=== PATIENT | female | born 1930 | race Two or more races ===

== ENCOUNTER 2020-09-09 11:32 | Emergency (ER) | payer MEDICARE, OTHER ==
[~2020-09-09] VITALS: Ht 157.5 cm; Wt 49.9 kg
[~2020-09-09 11:32] MED LIST: Gabapentin PO; SULF1TAB47 PO
[2020-09-09 12:14] LABS: BASOPHILS # (AUTO) 0.1 K/uL (0.0-8.0); BASOPHILS % (AUTO) 0.7 % (0.0-2.0); EOSINOPHILS % (AUTO) 8.7 % (0.0-7.0); HEMOGLOBIN 14.3 g/dL (10.9-14.3); LYMPHOCYTES # (AUTO) 4.1 K/uL (20.0-40.0); LYMPHOCYTES % (AUTO) 35.4 % (20.5-51.5); MEAN CORPUSCULAR HEMOGLOBIN 29.9 uug (24.7-32.8); MEAN CORPUSCULAR HGB CONC 33 g/dL (32.3-35.6); MEAN CORPUSCULAR VOLUME 90.2 fL (75.5-95.3); MONOCYTES # (AUTO) 0.6 K/uL (2.0-10.0); MONOCYTES % (AUTO) 4.8 % (0.0-11.0); NEUTROPHILS # (AUTO) 5.9 K/uL (1.8-8.9); NEUTROPHILS % (AUTO) 50.4 % (38.5-71.5); PLATELET COUNT (AUTO) 336 K/uL (179-408); RED BLOOD CELL COUNT(AUTO) 4.77 MIL/uL (3.63-4.92); WHITE BLOOD COUNT (AUTO) 11.7 K/uL (3.8-11.8)
[2020-09-09 12:20] LABS: POTASSIUM 4.4 mmol/L (3.5-5.1)
[2020-09-09 12:26] LABS: BILIRUBIN,DIRECT 0.1 mg/dL (0.0-0.2); BILIRUBIN,TOTAL 0.5 mg/dL (0.2-1.0); TOTAL PROTEIN, SERUM 7.5 g/dL (6.4-8.2)
[2020-09-09 12:37] LABS: *BILIRUBIN,URIN NEGATIVE (NEGATIVE); *BLOOD, URINE NEGATIVE (NEGATIVE); *CLARITY,URINE SLIGHTLY CLOUDY (CLEAR); *COLOR,URINE YELLOW (YELLOW); *KETONES,URINE NEGATIVE (NEGATIVE); *UROBILINOGEN,URINE 0.2 E.U./dl (NORMAL); LEUKOCYTE ESTERASE ,URINE NEGATIVE (NEGATIVE); NITRITE, URINE NEGATIVE (NEGATIVE); PH,URINE 5.5 (5.0-8.0); UGLUCOSE NEGATIVE (NEGATIVE)
[2020-09-09] MEDS ORDERED: BISA10SU61 RC (13:24)
[2020-09-09] MEDS ORDERED: DOCU-141 PO (13:24)
[2020-09-09 13:52] VITALS: BP 128/74
[2020-09-09 15:25] LABS: RBC,URINE 0-3 /HPF (0-3); WBC,URINE 0-3 /HPF (0-3)
[2020-09-09 15:26] LABS: BACTERIA,URINE NONE SEEN /HPF (NONE SEEN); SQUAMOUS EPITHELIAL CELL,UR NONE SEEN /HPF (NONE SEEN); URINE AMORPHOUS URATE FEW /HPF
== END 2020-09-09 13:48 | disposition home or self-care (01) ==
LOC: ER 11:33
DX: K59.00 Constipation, unspecified (principal); R63.4 Abnormal weight loss; Z86.73 Personal history of transient ischemic attack (TIA), and cerebral infarction without residual deficits; Z87.440 Personal history of urinary (tract) infections; E11.42 Type 2 diabetes mellitus with diabetic polyneuropathy; K21.9 Gastro-esophageal reflux disease without esophagitis; E79.0 Hyperuricemia without signs of inflammatory arthritis and tophaceous disease; R53.1 Weakness; Z79.899 Other long term (current) drug therapy; R79.89 Other specified abnormal findings of blood chemistry; I44.0 Atrioventricular block, first degree
CPT/HCPCS: 36415; 71045; 83690; 85025; 87086; 93005; A4663

== ENCOUNTER 2020-10-18 18:08 | Inpatient (IN) | payer MEDICARE, OTHER ==
[~2020-10-18] VITALS: Ht 152.4 cm; Wt 48.1 kg
[~2020-10-18 18:08] MED LIST changes: +BISA10SU61 RC; +DOCU-141 PO
[2020-10-18] MEDS ORDERED: METF-442 PO (18:28)
--- NOTE | 2020-10-18 18:38 | NUR ---
PT IS IN ROOM #2A WAITING FOR ER MD EVALUATION. PT's DOUGHTER AT THE BEDSIDE.
--- NOTE | 2020-10-18 19:13 | NUR ---
on site wastewater systems technician in room to take x-ray of patient.
--- NOTE | 2020-10-18 19:20 | NUR ---
spd tech in room to draw blood from patient.
[2020-10-18 19:31] LABS: BASOPHILS # (AUTO) 0.1 K/uL (0.0-8.0); BASOPHILS % (AUTO) 0.8 % (0.0-2.0); EOSINOPHILS # (AUTO) 0.5 K/uL (0.0-0.7); EOSINOPHILS % (AUTO) 5.1 % (0.0-7.0); HEMATOCRIT 41.7 % (31.2-41.9); HEMOGLOBIN 13.5 g/dL (10.9-14.3); LYMPHOCYTES # (AUTO) 3.7 K/uL (20.0-40.0); LYMPHOCYTES % (AUTO) 35.1 % (20.5-51.5); MEAN CORPUSCULAR HEMOGLOBIN 29.3 uug (24.7-32.8); MEAN CORPUSCULAR HGB CONC 33 g/dL (32.3-35.6); MEAN CORPUSCULAR VOLUME 90.2 fL (75.5-95.3); MONOCYTES # (AUTO) 0.8 K/uL (2.0-10.0); MONOCYTES % (AUTO) 7.1 % (0.0-11.0); NEUTROPHILS # (AUTO) 5.5 K/uL (1.8-8.9); NEUTROPHILS % (AUTO) 51.9 % (38.5-71.5); PLATELET COUNT (AUTO) 290 K/uL (179-408); RED BLOOD CELL COUNT(AUTO) 4.62 MIL/uL (3.63-4.92); WHITE BLOOD COUNT (AUTO) 10.6 K/uL (3.8-11.8)
[2020-10-18 19:46] LABS: POTASSIUM 4.4 mmol/L (3.5-5.1)
[2020-10-18 20:01] LABS: BILIRUBIN,DIRECT 0.1 mg/dL (0.0-0.2); BILIRUBIN,TOTAL 0.3 mg/dL (0.2-1.0)
[2020-10-18] MEDS ORDERED: CEFTRIAXONE 1 G in IV DEXTROSE 5% 50 ML IV ONE (20:45)
[2020-10-18] MEDS ORDERED: AZITHROMYCIN IV 500 MG in IV DEXTROSE 5% 250 ML IV ONE (20:45)
[2020-10-18] MEDS ORDERED: CEFTRIAXONE /D5W 50ML IVPB **ER PYXIS IV ONE (21:45)
[2020-10-18] MEDS ORDERED: AZITHROMYCIN 500MG/ D5W 250ML IVPB **ER PYXIS ONLY IV ONE (21:46)
[2020-10-18 22:58] LABS: ABG BASE EXCESS -3.3 mmol/L; ABG HCO3 20.2 mmol/L; ABG PCO2 32.2 mmHg (35.0-45.0); ABG PH 7.415 (7.350-7.450); ABG PO2 78.7 mmHg (75.0-100.0); ABG SITE LEFT RADIAL; VENT MODE room air
--- NOTE | 2020-10-18 23:38 | NUR ---
CHET Solano called to notify room will be telemetry 312 if COVID negative or 318 if COVID Positive.
[2020-10-18] MEDS ORDERED: BISACODYL 10 MG SUPP.RECT RC PRN (23:45)
[2020-10-19] MEDS ORDERED: KETAMINE HCL 500 MG/10 ML INJ IV ONE (00:15)
[2020-10-19] MEDS ORDERED: KETAMINE HCL 500 MG/10 ML INJ ONE (00:39)
--- NOTE | 2020-10-19 01:07 | NUR ---
Patient was taken to 3rd floor by Nursing Planning Consultant via gurny.
--- NOTE | 2020-10-19 01:07 | NUR ---
Pt. admitted to telemetry room 312, under care of Dr. Almodovar. Belongs List completed
[2020-10-19 01:31] VITALS: BP 150/67
[2020-10-19] MEDS ORDERED: ALBUTEROL SULFATE 2.5 MG/ 0.5 ML NEBU NEB PRN (01:45)
[2020-10-19] MEDS ORDERED: ONDANSETRON 4 MG/2 ML VIAL IV PRN (01:45)
[2020-10-19 04:00] VITALS: BP 119/68
[2020-10-19] MEDS: PANTOPRAZOLE SODIUM 40 MG TABLET.DR PO SCH ×2 (06:08→06:27)
[2020-10-19 06:34] LABS: BASOPHILS # (AUTO) 0.1 K/uL (0.0-8.0); BASOPHILS % (AUTO) 0.5 % (0.0-2.0); EOSINOPHILS # (AUTO) 0.4 K/uL (0.0-0.7); EOSINOPHILS % (AUTO) 3.1 % (0.0-7.0); HEMATOCRIT 42.5 % (31.2-41.9); HEMOGLOBIN 13.5 g/dL (10.9-14.3); LYMPHOCYTES # (AUTO) 2.2 K/uL (20.0-40.0); LYMPHOCYTES % (AUTO) 18.2 % (20.5-51.5); MEAN CORPUSCULAR HEMOGLOBIN 28.8 uug (24.7-32.8); MEAN CORPUSCULAR HGB CONC 32 g/dL (32.3-35.6); MEAN CORPUSCULAR VOLUME 90.5 fL (75.5-95.3); MONOCYTES # (AUTO) 0.8 K/uL (2.0-10.0); MONOCYTES % (AUTO) 6.6 % (0.0-11.0); NEUTROPHILS # (AUTO) 8.6 K/uL (1.8-8.9); NEUTROPHILS % (AUTO) 71.6 % (38.5-71.5); PLATELET COUNT (AUTO) 294 K/uL (179-408)
[2020-10-19 06:46] LABS: BILIRUBIN,TOTAL 0.4 mg/dL (0.2-1.0); CREATININE 0.9 mg/dL (0.6-1.3); MAGNESIUM 1.9 mg/dL (1.8-2.4); PHOSPHOROUS 4.1 mg/dL (2.5-4.9); POTASSIUM 4.2 mmol/L (3.5-5.1); TOTAL PROTEIN, SERUM 7.3 g/dL (6.4-8.2)
--- NOTE | 2020-10-19 07:00 | NUR ---
received in bed sleeping ,pt is [id number] bedbound call light with in reach.
[2020-10-19 07:15] LABS: THYROID STIMULATING HORMONE 3.001 mIU/mL (0.358-3.740)
--- NOTE | 2020-10-19 07:17 | NUR ---
Patient rested well in between care; pt held po meds because she is less alert and ordered ST eval; needs attended; admission procedures done; safety maintained; continue to monitor; continue plan of care,
[2020-10-19 07:35] VITALS: BP 106/57
[2020-10-19] MEDS: DOCUSATE SODIUM 100 MG CAPSULE PO SCH ×2 (08:07→16:06)
[2020-10-19 12:00] VITALS: BP 153/81
[2020-10-19 16:00] VITALS: BP 175/81
[2020-10-19] MEDS: MORPHINE SULFATE 2 MG/1 ML DISP.SYRIN IV PRN (16:09)
[2020-10-19 20:25] VITALS: BP 140/68
[2020-10-19] MEDS: CEFTRIAXONE 1 G in IV DEXTROSE 5% 50 ML IV SCH (20:36)
[2020-10-19] MEDS: ATORVASTATIN 10 MG TABLET PO SCH (20:36)
[2020-10-19] MEDS: METOPROLOL TARTRATE 25 MG TABLET PO SCH (20:37)
[2020-10-19] MEDS: AZITHROMYCIN IV 500 MG in IV DEXTROSE 5% 250 ML IV SCH (21:48)
[2020-10-20] VITALS (7 sets, daily range): BP systolic 108–156; BP diastolic 46–71
--- NOTE | 2020-10-20 05:33 | NUR ---
Pt slept intermittently throughout the night. No SOB noted. IV infiltrated so new one was placed on L FA 20g. BP elevated in morning, minor distress noted due to patient moaning, Morphine given, tolerated medication well. Safety and comfort provided to patient throughout shift. No other issues or concerns at this time, will endorse to day shift.
[2020-10-20] MEDS: PANTOPRAZOLE SODIUM 40 MG TABLET.DR PO SCH (06:20)
[2020-10-20] MEDS: MORPHINE SULFATE 2 MG/1 ML DISP.SYRIN IV PRN (06:21)
[2020-10-20 06:47] LABS: BASOPHILS # (AUTO) 0.1 K/uL (0.0-8.0); BASOPHILS % (AUTO) 0.7 % (0.0-2.0); EOSINOPHILS # (AUTO) 0.4 K/uL (0.0-0.7); EOSINOPHILS % (AUTO) 2.8 % (0.0-7.0); HEMATOCRIT 43.8 % (31.2-41.9); HEMOGLOBIN 14.3 g/dL (10.9-14.3); LYMPHOCYTES # (AUTO) 3.8 K/uL (20.0-40.0); LYMPHOCYTES % (AUTO) 27.3 % (20.5-51.5); MEAN CORPUSCULAR HEMOGLOBIN 29.7 uug (24.7-32.8); MEAN CORPUSCULAR HGB CONC 33 g/dL (32.3-35.6); MEAN CORPUSCULAR VOLUME 90.9 fL (75.5-95.3); MONOCYTES # (AUTO) 1.2 K/uL (2.0-10.0); MONOCYTES % (AUTO) 8.9 % (0.0-11.0); NEUTROPHILS # (AUTO) 8.4 K/uL (1.8-8.9); NEUTROPHILS % (AUTO) 60.3 % (38.5-71.5); PLATELET COUNT (AUTO) 336 K/uL (179-408); RED BLOOD CELL COUNT(AUTO) 4.81 MIL/uL (3.63-4.92)
[2020-10-20 07:11] LABS: BILIRUBIN,TOTAL 0.3 mg/dL (0.2-1.0); CREATININE 1.1 mg/dL (0.6-1.3); MAGNESIUM 2.2 mg/dL (1.8-2.4); PHOSPHOROUS 3.5 mg/dL (2.5-4.9); POTASSIUM 4.9 mmol/L (3.5-5.1); TOTAL PROTEIN, SERUM 7.9 g/dL (6.4-8.2)
--- NOTE | 2020-10-20 07:15 | NUR ---
received patient in bed awake. patient stable, no SOB, pain or discomfort noted at this time. safety precautions in place. will continue to monitor.
[2020-10-20] MEDS: DOCUSATE SODIUM 100 MG CAPSULE PO SCH ×2 (08:27→16:24)
[2020-10-20] MEDS: METOPROLOL TARTRATE 25 MG TABLET PO SCH ×2 (08:27→21:09)
--- NOTE | 2020-10-20 10:38 | NUR ---
WOUND CARE CONSULT: REVIEWED CHART, NURSING DOCUMENTATION AND SPOKE WITH RN. PER CHART AND NURSING STAFF, PT HAS INTACT SKIN AND SOME CONTRACTURES, PRESENT ON ADMISSION. RECOMMENDATIONS MADE FOR SKIN PROTECTION. DISCUSSED WITH NURSING STAFF. CURRENT BECCA SCORE IS 15. MD IN AGREEMENT WITH PLAN OF CARE.
[2020-10-20] MEDS ORDERED: Z GUARD REMEDY PASTE 57 GM TUBE TOP PRN (10:45)
--- NOTE | 2020-10-20 18:20 | NUR ---
patient awake in bed. vitals stable. no complains of any pain or discomfort at this time. call light within reach. IV intact and patent. safety precautions in place. will report to oncoming nurse.
--- NOTE | 2020-10-20 19:30 | NUR ---
RECEIVED PT AWAKE ON BED. PT IN NO ACUTE DISTRESS. PT NOTED TO HAVE CONTRACTURES ON UPPER RIGHT EXTREMITIES AND BILATERAL LOWER EXTREMITIES. IV INTACT. SAFETY AND COMFORT PROVIDED. WILL CONTINUE TO MONITOR.
[2020-10-20] MEDS: ACETAMINOPHEN 325 MG TABLET PO PRN (21:10)
[2020-10-20] MEDS: ATORVASTATIN 10 MG TABLET PO SCH (21:10)
--- NOTE | 2020-10-20 21:10 | NUR ---
TYLENOL PRN GIVEN FOR THE PT FOR GENERALIZED PAIN. PT TOLERATED IT WELL. WILL CONTINUE TO MONITOR.
[2020-10-20] MEDS: Z GUARD REMEDY PASTE 57 GM TUBE TOP SCH (21:11)
[2020-10-20] MEDS: CEFTRIAXONE 1 G in IV DEXTROSE 5% 50 ML IV SCH (21:11)
[2020-10-20] MEDS: AZITHROMYCIN IV 500 MG in IV DEXTROSE 5% 250 ML IV SCH (21:59)
[2020-10-21 00:10] VITALS: BP 112/45
[2020-10-21 04:25] VITALS: BP 129/87
[2020-10-21] MEDS: PANTOPRAZOLE SODIUM 40 MG TABLET.DR PO SCH (06:06)
--- NOTE | 2020-10-21 06:30 | NUR ---
PT SLEPT INTERMITTENTLY. PT IN NO ACUTE DISTRESS. IV INTACT. PRESCRIBED MEDICATION GIVEN AND PT TOLERATED IT WELL. PT TURNED AND REPOSITIONED Q2H. SAFETY AND COMFORT PROVIDED. WILL ENDORSE TO INCOMING NURSE FOR CONTINUITY OF CARE.
[2020-10-21] MEDS: Z GUARD REMEDY PASTE 57 GM TUBE TOP SCH ×2 (09:00→21:19)
[2020-10-21] MEDS: DOCUSATE SODIUM 100 MG CAPSULE PO SCH ×2 (09:00→16:30)
[2020-10-21 10:19] LABS: BASOPHILS # (AUTO) 0.1 K/uL (0.0-8.0); BASOPHILS % (AUTO) 0.6 % (0.0-2.0); EOSINOPHILS # (AUTO) 0.5 K/uL (0.0-0.7); EOSINOPHILS % (AUTO) 4.3 % (0.0-7.0); HEMATOCRIT 44.8 % (31.2-41.9); HEMOGLOBIN 14.7 g/dL (10.9-14.3); LYMPHOCYTES % (AUTO) 26.3 % (20.5-51.5); MEAN CORPUSCULAR HEMOGLOBIN 29.4 uug (24.7-32.8); MEAN CORPUSCULAR HGB CONC 33 g/dL (32.3-35.6); MEAN CORPUSCULAR VOLUME 89.6 fL (75.5-95.3); MONOCYTES # (AUTO) 0.9 K/uL (2.0-10.0); MONOCYTES % (AUTO) 7.7 % (0.0-11.0); NEUTROPHILS # (AUTO) 7.1 K/uL (1.8-8.9); NEUTROPHILS % (AUTO) 61.1 % (38.5-71.5); PLATELET COUNT (AUTO) 306 K/uL (179-408); WHITE BLOOD COUNT (AUTO) 11.6 K/uL (3.8-11.8)
[2020-10-21 10:30] LABS: BILIRUBIN,TOTAL 0.4 mg/dL (0.2-1.0); MAGNESIUM 2.2 mg/dL (1.8-2.4); PHOSPHOROUS 3.6 mg/dL (2.5-4.9); POTASSIUM 4.9 mmol/L (3.5-5.1)
[2020-10-21] MEDS: METOPROLOL TARTRATE 25 MG TABLET PO SCH ×2 (10:45→21:19)
[2020-10-21 12:00] VITALS: BP 117/59
[2020-10-21] MEDS ORDERED: ONDANSETRON HCL 4 MG TABLET PO PRN (12:00)
[2020-10-21 13:46] VITALS: BP 111/60
[2020-10-21 16:24] VITALS: BP 98/55
[2020-10-21 20:15] VITALS: BP 140/78
[2020-10-21] MEDS: ATORVASTATIN 10 MG TABLET PO SCH (21:19)
[2020-10-21] MEDS: CEFTRIAXONE 1 G in IV DEXTROSE 5% 50 ML IV SCH (21:20)
[2020-10-21] MEDS: AZITHROMYCIN IV 500 MG in IV DEXTROSE 5% 250 ML IV SCH (22:05)
[2020-10-22] MEDS: MORPHINE SULFATE 2 MG/1 ML DISP.SYRIN IV PRN (00:02)
[2020-10-22 04:15] VITALS: BP 127/41
[2020-10-22] MEDS: PANTOPRAZOLE SODIUM 40 MG TABLET.DR PO SCH (06:30)
[2020-10-22 07:19] LABS: BASOPHILS # (AUTO) 0.1 K/uL (0.0-8.0); BASOPHILS % (AUTO) 0.7 % (0.0-2.0); EOSINOPHILS # (AUTO) 0.5 K/uL (0.0-0.7); EOSINOPHILS % (AUTO) 4.3 % (0.0-7.0); HEMOGLOBIN 14.4 g/dL (10.9-14.3); LYMPHOCYTES # (AUTO) 3.6 K/uL (20.0-40.0); LYMPHOCYTES % (AUTO) 28.9 % (20.5-51.5); MEAN CORPUSCULAR HEMOGLOBIN 29.5 uug (24.7-32.8); MEAN CORPUSCULAR HGB CONC 33 g/dL (32.3-35.6); MEAN CORPUSCULAR VOLUME 90.5 fL (75.5-95.3); MONOCYTES % (AUTO) 8.2 % (0.0-11.0); NEUTROPHILS # (AUTO) 7.3 K/uL (1.8-8.9); NEUTROPHILS % (AUTO) 57.9 % (38.5-71.5); PLATELET COUNT (AUTO) 323 K/uL (179-408); RED BLOOD CELL COUNT(AUTO) 4.87 MIL/uL (3.63-4.92); WHITE BLOOD COUNT (AUTO) 12.6 K/uL (3.8-11.8)
[2020-10-22 07:33] LABS: BILIRUBIN,TOTAL 0.3 mg/dL (0.2-1.0); MAGNESIUM 2.3 mg/dL (1.8-2.4); PHOSPHOROUS 3.7 mg/dL (2.5-4.9)
[2020-10-22] MEDS: DOCUSATE SODIUM 100 MG CAPSULE PO SCH ×2 (09:51→17:44)
[2020-10-22] MEDS: Z GUARD REMEDY PASTE 57 GM TUBE TOP SCH ×2 (09:52→21:08)
[2020-10-22] MEDS: METOPROLOL TARTRATE 25 MG TABLET PO SCH ×2 (09:55→20:58)
[2020-10-22 11:53] VITALS: BP 131/66
--- NOTE | 2020-10-22 12:34 | NUR ---
WOUND CARE CONSULT: PT SEEN FOR SKIN ASSESSMENT AND NOTED TO HAVE SCARRING TO SACRUM AND BILATERAL LATERAL ANKLE AREAS, PRESENT ON ADMISSION. RECOMMENDATIONS MADE FOR SKIN PROTECTION. DISCUSSED WITH NURSING STAFF. PT IS ON FIRST STEP CIRS LOW AIRLOSS MATTRESS. LOWER EXTREMITY CONTRACTURES NOTED. MD IN AGREEMENT WITH PLAN OF CARE.
[2020-10-22 16:00] VITALS: BP 151/74
--- NOTE | 2020-10-22 18:40 | NUR ---
Patient in bed. Patient AOx2-3. On room air. No signs of acute distress. With left FA #20 IV access. Patient compliant with medications and care. Bed locked and in low position. Will endorse to incoming shift for continuity of care.
--- NOTE | 2020-10-22 19:30 | NUR ---
RECEIVED PT AWAKE, ALERT AND ORIENTEDX3. PT IN NO ACUTE DISTRESS. IV INTACT. PT ON FIRST STEP MATTRESS. SAFETY AND COMFORT PROVIDED. WILL CONTINUE TO MONITOR.
[2020-10-22 20:09] VITALS: BP 108/50
--- NOTE | 2020-10-22 20:30 | NUR ---
FAMILY AT BEDSIDE IF THE PT.
[2020-10-22] MEDS: CEFTRIAXONE 1 G in IV DEXTROSE 5% 50 ML IV SCH (20:55)
[2020-10-22] MEDS: ACETAMINOPHEN 325 MG TABLET PO PRN (20:55)
[2020-10-22] MEDS: ATORVASTATIN 10 MG TABLET PO SCH (20:55)
[2020-10-22] MEDS: AZITHROMYCIN IV 500 MG in IV DEXTROSE 5% 250 ML IV SCH (21:45)
[2020-10-23 04:09] VITALS: BP_SYST 126; BP_SYST 146; BP_DIAS 50; BP_DIAS 77
[2020-10-23] MEDS: PANTOPRAZOLE SODIUM 40 MG TABLET.DR PO SCH (06:06)
--- NOTE | 2020-10-23 07:04 | NUR ---
PT SLEPT INTERMITTENTLY. PT IN NO ACUTE DISTRESS. PRESCRIBED MEDICATION GIVEN AND PT TOLERATED IT WELL.TYLENOL PRN GIVEN AT 205H PAIN.PT TURNED AND REPOSITIONED. SAFETY AND COMFORT PROVIDED. ALL NEEDS ARE MET. WILL ENDORSE TO INCOMING NURSE FOR CONTINUITY OF CARE.
--- NOTE | 2020-10-23 07:20 | NUR ---
Patient received on first step mattress with eyes closed, but easily arousable. Patient on RA with no SOB or difficulties breathing. No distress noted at this time. Patient left FA IV is intact with no redness or swelling. Personal belongings and call light within easy reach. Will continue to monitor.
[2020-10-23] MEDS: DOCUSATE SODIUM 100 MG CAPSULE PO SCH ×2 (08:18→17:00)
[2020-10-23] MEDS: Z GUARD REMEDY PASTE 57 GM TUBE TOP SCH (08:19)
[2020-10-23] MEDS: METOPROLOL TARTRATE 25 MG TABLET PO SCH (08:19)
[2020-10-23] MEDS: ACETAMINOPHEN 325 MG TABLET PO PRN ×2 (09:49→19:35)
[2020-10-23 11:00] VITALS: BP 116/50
[2020-10-23 16:00] VITALS: BP 113/56
[2020-10-23] MEDS ORDERED: AMOX-427 PO (18:42)
[2020-10-23] MEDS ORDERED: METO25TA6 PO (18:42)
--- NOTE | 2020-10-23 19:45 | NUR ---
No s/s of acute distress, IV access removed. Discharge instructions provided, belongings checked and given to pt's daughter. Assisted in transferring pt to wheelchair. Discharged in stable condition.
== END 2020-10-23 19:55 | disposition home or self-care (01) | DRG 871 ==
LOC: ER 18:09 → TELE3 22:00 → MEDSURG3 10-21 09:45
PROVIDERS: ADMIT Internal Medicine; ATTEND Internal Medicine
DX: A41.9 Sepsis, unspecified organism (principal); G92 Toxic encephalopathy; J69.0 Pneumonitis due to inhalation of food and vomit; D68.59 Other primary thrombophilia; G91.2 (Idiopathic) normal pressure hydrocephalus; Z20.822 Contact with and (suspected) exposure to COVID-19; E11.42 Type 2 diabetes mellitus with diabetic polyneuropathy; E78.5 Hyperlipidemia, unspecified; I51.7 Cardiomegaly; M19.90 Unspecified osteoarthritis, unspecified site; M81.0 Age-related osteoporosis without current pathological fracture; Z86.16 Personal history of COVID-19; Z90.49 Acquired absence of other specified parts of digestive tract; F01.50 Vascular dementia, unspecified severity, without behavioral disturbance, psychotic disturbance, mood disturbance, and anxiety; M54.10 Radiculopathy, site unspecified; K21.9 Gastro-esophageal reflux disease without esophagitis; K29.70 Gastritis, unspecified, without bleeding; M24.574 Contracture, right foot; M24.575 Contracture, left foot; M75.102 Unspecified rotator cuff tear or rupture of left shoulder, not specified as traumatic; M75.101 Unspecified rotator cuff tear or rupture of right shoulder, not specified as traumatic; R74.01 Elevation of levels of liver transaminase levels; Z79.84 Long term (current) use of oral hypoglycemic drugs; R53.1 Weakness
CPT/HCPCS: 36415; 36600; 70030-TC; 70450; 71045; 76705; 83605; 83690; 83735; 84100; 84443; 85025; 85730; 87040; 93005; 93307; A4663; G0378; J0456; J0696; J2270; J3490; J7040; J7060; U0003